=== PATIENT | female | born 1955 ===

== ENCOUNTER 2017-09-03 16:09 | Emergency (ER) | payer OTHER ==
[~2017-09-03] VITALS: Ht 170.2 cm; Wt 78.9 kg
[2017-09-03] MEDS ORDERED: SYNTHROID75 MCG (16:52)
[2017-09-03] MEDS ORDERED: LIPITOR40 MG (17:09)
[2017-09-03] MEDS ORDERED: CITALOPRAM HBR40 MG (17:09)
[2017-09-03] MEDS ORDERED: LORATADINE10 MG (17:09)
[2017-09-03] MEDS ORDERED: TRAZODONE HCL50 MG (17:09)
== END 2017-09-04 02:29 | disposition home or self-care (01) ==
LOC: ER 16:09
DX: J11.1 Influenza due to unidentified influenza virus with other respiratory manifestations (principal); J06.9 Acute upper respiratory infection, unspecified

== ENCOUNTER 2017-09-10 11:35 | Emergency (ER) | payer OTHER ==
[~2017-09-10] VITALS: Ht 170.2 cm; Wt 78.9 kg
[~2017-09-10 11:35] MED LIST: CITALOPRAM HBR40 MG; LIPITOR40 MG; LORATADINE10 MG; SYNTHROID75 MCG; TRAZODONE HCL50 MG
== END 2017-09-10 17:49 | disposition home or self-care (01) ==
LOC: ER 11:35
DX: J11.1 Influenza due to unidentified influenza virus with other respiratory manifestations (principal)